=== PATIENT | male | born 1995 | race Two or more races ===

== ENCOUNTER 2021-03-21 08:38 | Emergency (ER) | payer MEDICAID ==
[~2021-03-21] VITALS: Ht 162.6 cm; Wt 83.9 kg
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
[2021-03-21] MEDS ORDERED: FLUORESCEIN SODIUM OPHTH 1 EA STRIP ONE (09:06)
[2021-03-21] MEDS ORDERED: ERYT3.5O9 LEFTEYE (09:17)
[2021-03-21] MEDS ORDERED: TETRACAINE HCL 0.5% OPHTALMIC 15 ML BOTTLE OP ONE (09:30)
[2021-03-21] MEDS ORDERED: FLUORESCEIN SODIUM OPHTH 1 EA STRIP OP ONE (09:30)
--- NOTE | 2021-03-21 09:35 | NUR ---
Patient discharged to home in stable condition. Written and verbal after care instructions given. Patient verbalizes understanding of instruction.
[2021-03-21 09:36] VITALS: BP 126/82
== END 2021-03-21 09:36 | disposition home or self-care (01) ==
LOC: ER 08:41
DX: S05.02XA Injury of conjunctiva and corneal abrasion without foreign body, left eye, initial encounter (principal); H10.89 Other conjunctivitis; X58.XXXA Exposure to other specified factors, initial encounter; Y93.89 Activity, other specified; Y92.89 Other specified places as the place of occurrence of the external cause; Y99.8 Other external cause status
CPT/HCPCS: 99283; A6403

== ENCOUNTER 2021-07-26 09:15 | Emergency (ER) | payer MEDICAID ==
[~2021-07-26] VITALS: Ht 162.6 cm; Wt 96.2 kg
[~2021-07-26 09:15] MED LIST: ERYT3.5O9 LEFTEYE
--- NOTE | 2021-07-26 09:24 | NUR ---
SEEN AND EXAMINED BY .
--- NOTE | 2021-07-26 09:25 | NUR ---
BIB [address] [employer] AND [employer] OFFICERS FROM HOME,LACERATION TO RIGHT THUMB,UNABLE TO FLEX/EXTEND THUMB. THE PATIENT IS ALERT AND ORIENTED X4. DENIES PAIN. IN ROOM AIR AND DENIES SOB. RESPIRATION REGULAR AND UNLABORED. NO BLEEDING NOTED AT THIS TIME. WILL CONTINUE TO MONITOR THE PATIENT. OFFICERS AT THE BEDSIDE
[2021-07-26] MEDS ORDERED: TDAP [DIPH/PERTUSSIS/TET] 0.5 ML VIAL IM ONE ×2 (09:30→10:30)
[2021-07-26] MEDS ORDERED: LIDOCAINE 1% INJ 50 ML MDV IJ ONE ×2 (09:30→10:30)
[2021-07-26] MEDS ORDERED: BACITRACIN ZINC OINT PACKET 1 EA PACKET TP ONE (09:30)
[2021-07-26] MEDS ORDERED: CEPH500C2 PO (13:32)
[2021-07-26] MEDS ORDERED: IBUP-1955 PO (13:32)
[2021-07-26 13:56] VITALS: BP 131/85
--- NOTE | 2021-07-26 13:56 | NUR ---
Patient discharged in stable condition. Written and verbal after care instructions given. Patient and the officers verbalize understanding of instruction. The patient left ER with the officers.
== END 2021-07-26 13:57 ==
LOC: ER 09:17
DX: S61.011A Laceration without foreign body of right thumb without damage to nail, initial encounter (principal); Z79.2 Long term (current) use of antibiotics; X99.1XXA Assault by knife, initial encounter; Y93.89 Activity, other specified; Y92.89 Other specified places as the place of occurrence of the external cause; Y99.8 Other external cause status
CPT/HCPCS: 12001; 73130; 90471; 90715; 99283; J3490

== ENCOUNTER 2021-07-26 16:54 | Emergency (ER) | payer MEDICAID, OTHER ==
[~2021-07-26] VITALS: Ht 162.6 cm; Wt 96.2 kg
[~2021-07-26 16:54] MED LIST changes: +CEPH500C2 PO; +IBUP-1955 PO
[2021-07-26 17:03] VITALS: BP 137/88
--- NOTE | 2021-07-26 17:10 | NUR ---
COVID SPECIMEN OBTAINED AND SENT TO LAB.
--- NOTE | 2021-07-26 17:10 | NUR ---
COVID SPECIMEN OBTAINED AND SENT TO LAB.
--- NOTE | 2021-07-26 17:30 | NUR ---
PT REFUSED XRAY. AWARE.
--- NOTE | 2021-07-26 17:30 | NUR ---
PT REFUSED XRAY. AWARE.
--- NOTE | 2021-07-26 19:03 | NUR ---
Patient discharged in custody in stable condition. Written and verbal after care instructions given. Patient verbalizes understanding of instruction.
--- NOTE | 2021-07-26 19:03 | NUR ---
Patient discharged in custody in stable condition. Written and verbal after care instructions given. Patient verbalizes understanding of instruction.
== END 2021-07-26 19:04 ==
LOC: ER 17:01
DX: U07.1 COVID-19 (principal)
CPT/HCPCS: 87426; 99283; C9803